=== PATIENT | male | born 1950 | race Caucasian/White ===

== ENCOUNTER → 2021-06-12 | Outpatient (CLI) | payer MEDICARE, OTHER ==
--- NOTE | 2021-06-12 12:02 | XR ---
EXAMINATION TYPE: XR tibia fibula LT DATE OF EXAM: 06/12/2021 COMPARISON: NONE HISTORY: Pain TECHNIQUE: Two views are submitted. FINDINGS: The osseous structures are intact. Diffuse osteopenia. Narrowing of the knee joint and hypertrophic c hanges involving the medial and lateral malleolus. Large calcaneal spurs and calcification along the plantar a bone arthrosis.. IMPRESSION: 1. No acute osseous abnormality. 2. Arthropathy. Large plantar calcaneal spurs.
--- NOTE | 2021-06-12 12:04 | XR ---
EXAMINATION TYPE: XR toes LT DATE OF EXAM: 06/12/2021 COMPARISON: NONE HISTORY: Pain TECHNIQUE: Three views are submitted. FINDINGS: The osseous structures are intact. There is no acute fracture or dislocation. Severe hypertrophic arthropathy first MTP. Arthropathy of all DIP joints. IMPRESSION: 1. No acute fracture or dislocation. If symptoms persist, follow-up exam in 7 to 10 days could be ob tained. 2. Severe arthropathy.
--- NOTE | 2021-06-12 12:20 | US ---
EXAMINATION TYPE: US venous doppler duplex LE DATE OF EXAM: 06/12/2021 11:31 AM COMPARISON: NONE CLINICAL HISTORY: R60.0 LOCALIZED EDEMA. Patient on Eloquist. SIDE PERFORMED: Left TECHNIQUE: The lower extremity deep venous system is examined utilizing real time linear array sonog kallie with graded compression, doppler sonography and color-flow sonography. VESSELS IMAGED: Common Femoral Vein Deep Femoral Vein Greater Saphenous Vein * Femoral Vein Popliteal Vein Small Saphenous Vein * Proximal Calf Veins (* superficial vessels) Left Leg: Negative for DVT Scanning was performed directly over lump left lower leg. There is a complex fluid collection measuri ng 5.4 x 1.2 x 4.5 cm. Grayscale, color doppler, spectral doppler imaging performed of the deep veins of the left lower extr emity. There is normal flow, compressibility, vascular waveforms. IMPRESSION: No ultrasound evidence for acute DVT in the left lower extremity. Towards end of study t here is mild to moderate diffuse subcutaneous edema and a moderate size nonsimple fluid collection in the lower leg at the palpable lump. Subcutaneous Hematoma suspected in this patient on blood thinner s. Correlate clinically.
== END | disposition home or self-care (01) ==
LOC: RADUSWWP 11:09
PROVIDERS: ATTEND Family Medicine
DX: M77.32 Calcaneal spur, left foot (principal); M12.872 Other specific arthropathies, not elsewhere classified, left ankle and foot

== ENCOUNTER 2021-06-24 10:04 | Day surgery (SDC) | payer MEDICARE, OTHER ==
[2021-06-23 11:03] VITALS: BMI 34.3
[~2021-06-24 10:04] MED LIST: LACTATED RINGERS 1,000 ML IV SCH; LIDOCAINE 1% (10MG/ML) FOR IV START INTRADERMA PRN; TETRACAINE 0.5% OPHTH (PF) DROPS 4 ML BTL OP PRN
[2021-06-24] MEDS: PHENYLEPHRINE 2.5% OPHTH DRP 2ML OP PRN ×3 (10:30→10:50)
[2021-06-24] MEDS: CYCLOPENTOLATE 1% OPHTH SOLN 2 ML BTL OP PRN ×3 (10:35→10:55)
[2021-06-24 10:43] VITALS: RESP 16; TEMP 97.8
[2021-06-24] MEDS ORDERED: fentaNYL (PF) 50 MCG/ML 2 ML AMP ONE (11:57)
[2021-06-24] MEDS ORDERED: MIDAZOLAM 2 MG/2 ML VIAL ONE (11:57)
[2021-06-24] MEDS ORDERED: BALANCED SALT IRRIG SOLN COMB2 15 ML IRRIG.SOLN IRRIGATION ONE (12:22)
[2021-06-24] MEDS ORDERED: DUOVISC KIT (GREEN BOX) INTRAOCULA ONE (12:22)
[2021-06-24] MEDS ORDERED: LIDOCAINE 1% (PF) 10MG/ML VIAL MISCELLANE ONE (12:22)
[2021-06-24] MEDS ORDERED: EPINEPHrine (PF) 0.3 ML in BALANCED SALT IRRIG SOLN COMB2 500 ML IRRIGATION ONE (12:30)
[2021-06-24] MEDS: TIMOLOL 0.5% OPHTH DROPS 5 ML BTL OP PRN ×2 (12:34→12:41)
[2021-06-24] MEDS: MOXIFLOXACIN HCL 0.5% DROPS 3 ML BTL OP PRN ×2 (12:35→12:41)
[2021-06-24] MEDS ORDERED: TRYPAN BLUE 0.06% SYRINGE 0.5 ML SYRINGE INTRAOCULA ONE (12:36)
--- NOTE | 2021-06-24 12:47 | P.OP ---
Date of Procedure: 06/24/21 Preoperative Diagnosis: NS & POAG mild Postoperative Diagnosis: same Procedure(s) Performed: PIOL & goniotomy OS Implants: [id number] 24.50 Anesthesia: MAC Surgeon: Marco Patterson Pathology: none sent Condition: stable Disposition: same day Indications for Procedure: blurry vision and glaucoma control Operative Findings: no complications
[2021-06-24 13:14] VITALS: BP 124/74; PULSE 61
--- NOTE | 2021-06-25 15:41 | OP ---
OPERATIVE REPORT DATE OF SURGERY: 06/24/2021. PROCEDURE: Phacoemulsification of cataract and intraocular lens implant of the left eye with goniotomy of the left eye. PREOPERATIVE DIAGNOSES: Nuclear sclerosis and open-angle glaucoma, mild stage. POSTOPERATIVE DIAGNOSIS: Nuclear sclerosis and open-angle glaucoma, mild stage. SURGEON: Dr. Marco Patterson. ANESTHESIA: Topical. ESTIMATED BLOOD LOSS: None. SPECIMEN TAKEN: None. NARRATIVE: After obtaining the appropriate consent, the patient was brought to the operating room. There he was asked to sit upright, and the axes of zero and 180 degrees on the patient's corneal limbus were identified and marked with a gentian billy marker. He was then placed in the proper supine position under cardiac monitoring, then prepped and draped in the usual sterile manner. He was approached from his left temporal side, and using previously acquired corneal topography information, a [employer] axis marker previously inked in gentian billy was placed on the patient's cornea to porter the axis of 177 degrees. This was followed by a paracentesis at the 5 o'clock position. 1% xylocaine MPF 50:50 mix with balanced salt solution was then injected into the anterior chamber. This was followed by staining of the anterior structures with Trypan blue, which was irrigated away after one minute Visco was then used to stabilize the anterior chamber, and at the 3 o'clock position a 2.5 mm keratome was used to create a self- sealing corneal flap incision. The patient was then asked to rotate his head approximately 45 degrees to his right, and a gonioscopy prism was placed on the patient's cornea. Using a [place] Dual Blade goniotomy knife which had been advanced across the anterior chamber into the nasal portion of the patient's eye using a porter- and-meet method, approximately 5-1/2 clock-hours of nasal trabecular meshwork was removed without difficulty. The patient was then brought to the normal supine position and a cystotome was introduced to begin a continuous tear capsulorrhexis which was then otherwise completed using Utrata forceps. Hydrodissection and hydrodelineation of the lens was accomplished with balanced salt solution. Phacoemulsification of the lens utilizing phaco chop was accomplished in 13.98 seconds at 16% power. Additional Xylocaine MPF was instilled into the anterior chamber. This was followed by removal of the remaining cortex from in and around the intraocular lens bag as well as some careful polishing of the posterior capsule in the capsule vacuum mode. Using additionally Shahram and Pepose anterior capsule polishers which were applied to the anterior capsule, this removed any remaining lens material that could be found. The capsular bag was then stabilized using Provisc, and a Polo [employer] Polo model PIZ263 24.5-diopter spherical equivalent intraocular lens was then introduced into the capsular bag without difficulty. The remaining viscoelastic was removed from in and around the intraocular lens, and using previously marked corneal hashes from the [employer] marker, the index irby on the patient's lens were then aligned with this 177-degree axis. The lens was lightly tamponaded against the posterior capsule to ensure rotational stability. Following removal of all remaining viscoelastic from the anterior chamber, the eye was brought to slightly higher than normal intraocular pressure following the goniotomy procedure which had been previously accomplished. The incisions were confirmed watertight. He then received two drops of 0.5% timolol followed by two drops of 0.5% moxifloxacin. He was then lightly patched and shielded in the usual manner. There were no complications from the procedure. He tolerated the procedure well and was returned to [facility] in good condition. MMODL / IJN: [id number] /
== END 2021-06-24 13:23 | disposition home or self-care (01) ==
LOC: OR 10:04
PROVIDERS: ATTEND Ophthalmology
DX: H25.12 Age-related nuclear cataract, left eye (principal); H40.1131 Primary open-angle glaucoma, bilateral, mild stage; H35.3122 Nonexudative age-related macular degeneration, left eye, intermediate dry stage; H35.3112 Nonexudative age-related macular degeneration, right eye, intermediate dry stage; H40.1111 Primary open-angle glaucoma, right eye, mild stage; H40.1122 Primary open-angle glaucoma, left eye, moderate stage; H35.30 Unspecified macular degeneration; E78.5 Hyperlipidemia, unspecified; I10 Essential (primary) hypertension; Z86.718 Personal history of other venous thrombosis and embolism; L71.9 Rosacea, unspecified; E11.9 Type 2 diabetes mellitus without complications; Z85.828 Personal history of other malignant neoplasm of skin; Z86.711 Personal history of pulmonary embolism; M54.9 Dorsalgia, unspecified; Z79.01 Long term (current) use of anticoagulants; Z79.84 Long term (current) use of oral hypoglycemic drugs; Z79.82 Long term (current) use of aspirin; Z79.899 Other long term (current) drug therapy
CPT/HCPCS: 65820; 66990; 66984; V2787; C1780; J2250; J0171; J3010; J2001

== ENCOUNTER 2021-10-14 12:12 | Day surgery (SDC) | payer MEDICARE, OTHER ==
[2021-10-13 09:07] VITALS: BMI 33.3
[~2021-10-14 12:12] MED LIST changes: -LACTATED RINGERS 1,000 ML IV SCH; -LIDOCAINE 1% (10MG/ML) FOR IV START INTRADERMA PRN
[2021-10-14] MEDS: CYCLOPENTOLATE 1% OPHTH SOLN 2 ML BTL OP PRN ×3 (12:40→12:52)
[2021-10-14] MEDS: PHENYLEPHRINE 2.5% OPHTH DRP 2ML OP PRN ×3 (12:43→12:55)
[2021-10-14 12:51] VITALS: TEMP 98.3
[2021-10-14 12:58] LABS: Glucose,Whole Blood 91 mg/dL (75-99)
[2021-10-14] MEDS ORDERED: LACTATED RINGERS 1,000 ML IV ONE (13:01)
[2021-10-14] MEDS ORDERED: MIDAZOLAM 2 MG/2 ML VIAL ONE (14:00)
[2021-10-14] MEDS ORDERED: fentaNYL (PF) 50 MCG/ML 2 ML AMP ONE (14:00)
[2021-10-14] MEDS ORDERED: EPINEPHrine (PF) 0.3 ML in BALANCED SALT IRRIG SOLN COMB2 500 ML IRRIGATION ONE (14:23)
[2021-10-14] MEDS ORDERED: DUOVISC KIT (GREEN BOX) INTRAOCULA ONE (14:26)
[2021-10-14] MEDS ORDERED: BALANCED SALT IRRIG SOLN COMB2 15 ML IRRIG.SOLN INTRAOCULA ONE (14:26)
[2021-10-14] MEDS ORDERED: TRYPAN BLUE 0.06% SYRINGE 0.5 ML SYRINGE INTRAOCULA ONE ×2 (14:27→14:38)
[2021-10-14] MEDS ORDERED: LIDOCAINE 1% (PF) 10MG/ML VIAL MISCELLANE ONE (14:27)
[2021-10-14] MEDS: MOXIFLOXACIN HCL 0.5% DROPS 3 ML BTL OP PRN ×2 (14:28→14:39)
[2021-10-14] MEDS: TIMOLOL 0.5% OPHTH DROPS 5 ML BTL OP PRN ×2 (14:28→14:39)
--- NOTE | 2021-10-14 14:43 | P.OP ---
Date of Procedure: 10/14/21 Preoperative Diagnosis: NS & POAG Postoperative Diagnosis: same Procedure(s) Performed: PIOL< OD Implants: [id number] 24.50 Anesthesia: MAC Surgeon: Marco Patterson Pathology: none sent Condition: stable Disposition: same day Indications for Procedure: blurry vision and better glaucoma control Operative Findings: no complications
[2021-10-14 14:51] VITALS: RESP 16
[2021-10-14 15:00] VITALS: BP 151/86; PULSE 66
--- NOTE | 2021-10-14 18:27 | OP ---
OPERATIVE REPORT DATE OF SURGERY: 10/14/2021. PROCEDURE: Phacoemulsification of cataract and intraocular lens implant with goniotomy of the right eye. PREOPERATIVE DIAGNOSES: Nuclear sclerosis and primary open-angle glaucoma, mild stage. POSTOPERATIVE DIAGNOSES: Nuclear sclerosis and primary open-angle glaucoma, mild stage. SURGEON: Dr. Marco Patterson. ANESTHESIA: Topical. ESTIMATED BLOOD LOSS: None. SPECIMEN TAKEN: None. NARRATIVE: After obtaining the appropriate consent, the patient was brought to the operating room. There he was placed under cardiac monitoring, prepped and draped in the usual sterile manner. He was approached from his right temporal side, and at the 11 o'clock position an MVR blade was used to create a paracentesis port. Through this opening 1% Xylocaine and MPF 50:50 mix with balanced salt solution was injected into the anterior chamber. This was followed by Trypan blue, which was allowed to stay in the eye for approximately one minute. Trypan blue was then removed with additional balanced salt solution and the anterior chamber was stabilized using Viscoat. At the 9 o'clock position, a 2.5 mm keratome was used to create a self-sealing corneal flap incision. The patient was then asked to rotate his head approximately 45 degrees to his left. A gonioprism was placed on the patient's cornea, and using a KDB goniotomy knife using an inside-out method, the trabecular meshwork for approximately 5 clock-hours was removed from the nasal side of the patient's eye. The patient was then returned to the normal supine position. A cystotome was introduced to begin a continuous tear capsulorrhexis which was completed using the Utrata forceps. Hydrodissection and hydrodelineation of the lens were accomplished with balanced salt solution. Phacoemulsification of the lens utilizing phaco chop was accomplished in 11.73 seconds at 12% power. Additional Xylocaine MPF was instilled into the anterior chamber. This was followed by removal of the remaining cortical material under irrigation and aspiration as well as careful polishing of the posterior capsule in the capsule vacuum mode. Provisc was then used to stabilize the capsular bag, and a [employer]ch [employer] MX60E 24.5 diopter posterior chamber intraocular lens was then placed into the capsular bag without difficulty. The remaining viscoelastic was removed from in and around the intraocular lens with irrigation and aspiration, and the eye was brought to normal intraocular pressure through the paracentesis port with balanced salt solution. The incisions were confirmed watertight. He then received 2 drops of 0.5% timolol followed by 2 drops of moxifloxacin. He was then lightly patched and shielded in the usual manner. There were no complications from the procedure. He tolerated the procedure well and was returned to [facility] in good condition. MMBUNNY / RAKESH: [id number] /
== END 2021-10-14 15:09 | disposition home or self-care (01) ==
LOC: OR 12:12
PROVIDERS: ATTEND Ophthalmology
DX: H25.11 Age-related nuclear cataract, right eye (principal); H40.1131 Primary open-angle glaucoma, bilateral, mild stage; H35.3122 Nonexudative age-related macular degeneration, left eye, intermediate dry stage; H52.6 Other disorders of refraction; H35.3112 Nonexudative age-related macular degeneration, right eye, intermediate dry stage; H40.1122 Primary open-angle glaucoma, left eye, moderate stage; H52.03 Hypermetropia, bilateral; H35.30 Unspecified macular degeneration; H52.4 Presbyopia; Z98.42 Cataract extraction status, left eye; E78.5 Hyperlipidemia, unspecified; Z96.1 Presence of intraocular lens; Z86.16 Personal history of COVID-19; I10 Essential (primary) hypertension; L71.9 Rosacea, unspecified; E11.9 Type 2 diabetes mellitus without complications; M54.9 Dorsalgia, unspecified; Z83.511 Family history of glaucoma; Z90.49 Acquired absence of other specified parts of digestive tract; Z85.828 Personal history of other malignant neoplasm of skin; Z98.890 Other specified postprocedural states; Z83.518 Family history of other specified eye disorder; Z82.61 Family history of arthritis; Z80.0 Family history of malignant neoplasm of digestive organs; Z83.3 Family history of diabetes mellitus; Z82.49 Family history of ischemic heart disease and other diseases of the circulatory system; Z79.01 Long term (current) use of anticoagulants; Z79.82 Long term (current) use of aspirin; Z79.899 Other long term (current) drug therapy
CPT/HCPCS: 66984; 65820; C1780; J2250; J0171; J3010; J2001